=== PATIENT | female | born 1990 | race African-American/Black ===

== ENCOUNTER 2017-02-27 12:09 | Emergency (ER) | payer MEDICAID ==
[~2017-02-27] VITALS: Ht 170.2 cm; Wt 107.5 kg
[2017-02-27 15:37] VITALS: BP 136/81
[2017-02-27] MEDS ORDERED: POVIDONE-IODINE 10% TOPICAL SOLN 240ML TOP ONE (16:15)
[2017-02-27] MEDS ORDERED: BACITRACIN ZINC OINT UDPKT TOP ONE (16:15)
[2017-02-27] MEDS ORDERED: ACETAMINOPHEN 325MG TABLET PO ONE (16:15)
== END 2017-02-27 16:56 | disposition home or self-care (01) ==
LOC: ER 13:09
DX: O9A.212 Injury, poisoning and certain other consequences of external causes complicating pregnancy, second trimester (principal); S81.801A Unspecified open wound, right lower leg, initial encounter; E11.9 Type 2 diabetes mellitus without complications; F17.200 Nicotine dependence, unspecified, uncomplicated; Z88.0 Allergy status to penicillin; Z3A.24 24 weeks gestation of pregnancy; Y09 Assault by unspecified means
CPT/HCPCS: 99283; A4246; Z7610